=== PATIENT | male | born 1975 | race Caucasian/White ===

== ENCOUNTER 2018-08-10 08:11 | Outpatient (CLI) | payer BC ==
--- NOTE | 2018-08-10 11:41 | MRI ---
MRI RIGHT FOURTH DIGIT: Date: 08/10/18 PROVIDED CLINICAL HISTORY: Fourth metacarpophalangeal joint pain. FINDINGS: The flexor tendons and extensor mechanism appear normal as visualized. The flexor tess system appea rs intact. The PIP joint appears unremarkable. The DIP joint was not included in the imaging volume on the axial and sagittal images. At the fourth MCP joint, intact fibers of the radial collateral ligaments are not identified, compati ble with disruption. The ulnar collateral ligament appears intact. The MCP joint capsule appears inta ct. The interosseous tendons appear intact. There is a small fourth MCP joint effusion. There is mild pericapsular edema, predominantly dorsally. The volar plate appears intact. IMPRESSION: Findings compatible with disruption of the radial collateral ligament of the fourth MCP joint, with a ssociated capsular sprain and small MCP joint effusion. POS: OFF
== END 2018-08-10 08:12 | disposition home or self-care (01) ==
LOC: TBSIIMAG 08:11
PROVIDERS: ATTEND Orthopaedic Surgery Hand Surgery
DX: S66.801D Unspecified injury of other specified muscles, fascia and tendons at wrist and hand level, right hand, subsequent encounter (principal); S63.41 Traumatic rupture of collateral ligament of finger at metacarpophalangeal and interphalangeal joint; S63.412D Traumatic rupture of collateral ligament of right middle finger at metacarpophalangeal and interphalangeal joint, subsequent encounter

== ENCOUNTER 2018-08-22 00:49 | Outpatient (CLI) | payer BC ==
[2018-08-22 15:19] LABS: #Basophils 0.1 thou/uL (0.0-0.2); #Eosinphils 0.2 thou/uL (0.0-0.7); #Lymphocytes 2.1 thou/uL (1.20-3.40); #Monocytes 0.4 thou/uL (0.11-0.59); #Neutrophils 2.7 thou/uL (1.40-6.50); %Eosinophils 3.7 % (0.0-10.0); %Lymphocytes 38.9 % (21.0-51.0); %Neutrophils 49.5 % (42.0-75.0); Hemoglobin 13.9 g/dL (14.0-18.0); Mean Corpuscular HGB CONC 34.4 g/dL (32.0-36.0); Mean Corpuscular Hemoglobin 32.8 pg (27.0-31.0); Mean Corpuscular Volume 95.5 fL (78.0-98.0); Mean Platelet Volume 7.8 fL (7.4-10.4); Platelet Count 210 thou/uL (130-400); RBC Distribution Width 11.4 % (11.5-14.5); Red Blood Cell (RBC) Count 4.24 mill/uL (4.70-6.10); White Blood Cell (WBC) Count 5.4 thou/uL (4.8-10.8)
== END 2018-08-22 00:50 | disposition home or self-care (01) ==
LOC: LABBT 00:49
PROVIDERS: ATTEND Orthopaedic Surgery Hand Surgery
DX: Z01.812 Encounter for preprocedural laboratory examination (principal); S63.414A Traumatic rupture of collateral ligament of right ring finger at metacarpophalangeal and interphalangeal joint, initial encounter
CPT/HCPCS: 85025

== ENCOUNTER 2018-08-24 10:10 | Day surgery (SDC) | payer BC ==
[2018-08-22 14:55] VITALS: BMI 25.1
[2018-08-24] MEDS ORDERED: Lidocaine 1% PF 5 ML VIAL ONE (10:59)
[2018-08-24] MEDS ORDERED: Ondansetron PF 4 MG/2 ML Vial ONE (10:59)
[2018-08-24] MEDS ORDERED: PROPOFOL 200 MG/20 ML VIAL ONE (10:59)
[2018-08-24] MEDS ORDERED: Midazolam HCl 2 mg/2 ml Vial ONE (12:02)
[2018-08-24] MEDS ORDERED: Fentanyl 100 MCG/2 ML VIAL ONE ×3 (12:02→17:26)
[2018-08-24] MEDS ORDERED: Bacitracin Zinc Ointment 30 gm TUBE ONE (14:30)
[2018-08-24] MEDS ORDERED: Bupivacaine PF 0.5% 30 ML VIAL ONE (14:30)
[2018-08-24] MEDS ORDERED: Sodium Chloride 0.9% 10 ML ONE (14:30)
[2018-08-24] MEDS ORDERED: Betamet Acet/Betamet Na Ph 30 MG/5 ML VIAL ONE (14:30)
[2018-08-24] MEDS ORDERED: Ketorolac Tromethamine 30 MG/ML VIAL ONE (17:25)
[2018-08-24] MEDS ORDERED: HYDROcodone/Acetaminophen 5/325 mg Tablet ONE (18:34)
--- NOTE | 2018-08-25 01:02 | OP ---
DATE OF PROCEDURE: 08/24/2018 PREOPERATIVE DIAGNOSIS: Right metacarpophalangeal joint radial collateral ligament tear. POSTOPERATIVE DIAGNOSIS: Right metacarpophalangeal joint radial collateral ligament tear. FINDINGS: Attenuated ligament, periarticular with an L-shaped pattern propagating back approximately 1 cm longitudinally of redundant tissue. PROCEDURES PERFORMED: Arthrotomy of joint with reconstruction back to bone in distal wing of the limb of the L and repair of the intrasubstance tear. COMPLICATIONS: None. TOURNIQUET TIME: 59 minutes. ESTIMATED BLOOD LOSS: 10 cc. INJECTABLES: 30 cc of 0.5% Marcaine (15 before procedure and 15 after the wound was closed). C-ARM USED: Yes. INDICATIONS: Patient with pain responded to conservative treatment including splint and therapy, and avoidance of activity, so MRI was performed, which showed a kind of tear distally, but did not show any evidence of pericapsular lesions today. DESCRIPTION OF PROCEDURE: After successful general endotracheal anesthesia, the limb was prepped and draped. The patient had the time-out done appropriately, tourniquet inflated after limb exsanguination and a curvilinear incision was made going down deep into webspace just distal to the metacarpal head, but avoiding the all the neurovascular structures. We carried through skin and subcutaneous tissue and then we released the radial retinaculum for this radial base tear in its mid third and dissected slightly volarly where we began to see the attenuated longitudinal tear and then we saw the redundant tissue at the joint line. We released the joint, made arthrotomy, looked inside, removed the 1 mm of completely redundant tissue both in the limb parallel to the joint line and in the longitudinal aspect. We then made a trough approximately 6 mm wide for the joint parallel portion of this tear, placed an anchor inside, and then used a Brionna type stitch to bring the distal portion of the tear into this defect. We then oversewed with 4-0 Prolene the area distal to the tear and then repaired the longitudinal portion of the L-shaped defect with 4-0 Prolene in an interrupted mattress pattern. The joint was now very stable. Indeed, there was slight overlap radially. We released the tourniquet. We did a C-arm confirmation that what we saw clinically was in fact true, that the anchor was in excellent position in frontal sagittal plane. We then repaired the retinaculum with interrupted 4-0 Prolene without complications and good tension. We released the tourniquet and obtained hemostasis. We repaired the skin with interrupted 4-0 nylon in a simple pattern deep in the wound and dorsally in a mattress. We gave remaining 15 cc of injection and the patient left the operating room in a bulky dressing and a splint without evidence of anesthetic or operative complication. Job ID: [id number]
--- NOTE | 2018-08-25 16:55 | RAD ---
FINGERS RIGHT HAND: 08/25/18 Two fluoroscopic images are obtained from OR. INDICATIONS: Imaging during right finger arthrotomy. FINDINGS/IMPRESSION: These images are obscured by overlying artifact. Metallic instrument overlies the first MCP joint on the second image. POS: OFF
== END 2018-08-24 19:10 | disposition home or self-care (01) ==
LOC: SDC 10:10
PROVIDERS: ATTEND Orthopaedic Surgery Hand Surgery
PROC: 0MQ70ZZ Repair Right Hand Bursa and Ligament, Open Approach (ICD-10-PCS; principal; 2018-08-24)
DX: S63.414A Traumatic rupture of collateral ligament of right ring finger at metacarpophalangeal and interphalangeal joint, initial encounter (principal); Z87.891 Personal history of nicotine dependence
CPT/HCPCS: 76000; C1713; J0690; J0702; J1885; J2001; J2250; J2405; J2704; J3010; J3490; S0020